=== PATIENT | female | born 1995 | race Caucasian/White ===

== ENCOUNTER 2018-04-30 11:42 | Emergency (ER) | END 2018-04-30 13:18 | disposition home or self-care (01) ==

== ENCOUNTER 2018-09-22 23:26 | Emergency (ER) | payer MEDICAID ==
[~2018-09-22] VITALS: Wt 59.3 kg
[~2018-09-22 23:26] MED LIST: MECL12.574 PO; ONDA4TAB14 PO; PRENAT PO
[2018-09-22 23:28] VITALS: BP 126/69; PULSE 81; RESP 19
--- NOTE | 2018-09-22 23:37 | ERD ---
ER Documentation Chief Complaint Chief Complaint bib self, cc: lac on upper left eye lid HPI This is a 22-year-old female who presents emergency department with complaints of left upper eyelid laceration that happened 40 minutes prior to arrival here in the emergency department. Stated that [id number] boy hit her left upper eyelid using a toy truck. LMP: 2 weeks ago. A0. Denies headache, head injury, loss of consciousness, dizziness, neck pain, neck stiffness, throat pain, difficulty swallowing, difficulty breathing lying flat, shoulder pain, chest pain, back pain, abdominal pain, nausea, vomiting, constipation, diarrhea, urinary symptoms, or possibility being pregn ant, loss of bowel and bladder control, difficulty walking due to pain, numbness or tingling sensation, calf pain, recent travel, recent major surgery in the last 3 weeks, calf pain, recent long travel, recent exposure to any illness, recent antibiotic use in the last 3 months, fever, chills, seizures. Past medical history: Denies. Surgical history: Denies. Social: Denies smoking, use of alcoholic beverages, use of illegal drugs. ROS All systems reviewed and are negative except as per history of present illness. Medications Home Meds Active Scripts Acetaminophen* (Tylophen*) 500 Mg Capsule, 1 CAP PO Q6H PRN for PAIN AND OR ELEVATED TEMP, #20 CAP Prov:VICTOR HUGO MOSESAR F 09/23/18 Ibuprofen* (Motrin*) 600 Mg Tab, 600 MG PO Q6H PRN for PAIN AND OR ELEVATED TEMP, #30 TAB Prov:JULIANAILABANVICTOR HUGOAR F 09/23/18 Meclizine Hcl* (Antivert*) 12.5 Mg Tab, 12.5 MG PO Q6H PRN for DIZZINESS, #20 TAB Prov:JASMINE NAGEL PA-C 04/30/18 Ondansetron (Ondansetron Odt) 4 Mg Tab.rapdis, 4 MG PO Q6H PRN for NAUSEA AND/OR VOMITING, #15 TAB Prov:JASMINE NAGEL PA-C 04/30/18 Reported Medications Multivit/Min/Fol Ac/Iron/Pren* ( S*) 1 Tab Tab, 1 TAB PO DAILY, TAB 06/11/16 Allergies Allergies: Coded Allergies: No Known Allergy (Unverified , 08/28/16) PMhx/Soc History of Surgery: No Anesthesia Reaction: No Hx Neurological Disorder: No Hx Respiratory Disorders: No Hx Cardiac Disorders: No Hx Psychiatric Problems: No Hx Miscellaneous Medical Probl: No Hx Alcohol Use: No Hx Substance Use: No Hx Tobacco Use: No Physical Exam Vitals Vital Signs Date Temp Pulse Resp B/P (MAP) Pulse Ox O2 O2 Flow FiO2 Time Delivery Rate 09/22/18 98.1 81 19 126/69 100 23:28 (88) Physical Exam Const: No acute distress Head: Atraumatic Eyes: Normal Conjunctiva. Left upper eyelid: Laceration measuring approximately 1.5 cm in length. ENT: Normal External Ears, Nose and Mouth. Neck: Full range of motion. No meningismus. Resp: Clear to auscultation bilaterally Cardio: Regular rate and rhythm, no murmurs Abd: Soft, non tender, non distended. Normal bowel sounds Skin: No petechiae or rashes Back: No midline or flank tenderness Ext: No cyanosis, or edema Neur: Awake and alert Psych: Normal Mood and Affect Results 24 hrs Current Medications Medications Dose Sig/Jhoan Start Time Status Last (Trade) Ordered Route PRN Stop Time Admin Dose Reason Admin Diphtheria/ 0.5 ml ONCE ONCE 09/23/18 DC 09/22/18 Tetanus/Acell IM* 00:00 23:49 Pertussis 09/23/18 (Adacel) 00:01 Lidocaine 20 ml ONCE ONCE 09/23/18 DC (Xylocaine SC 00:00 1% (Mdv) 20 09/23/18 ml) 00:01 Tetracaine 1 drop ONCE ONCE 09/23/18 DC HCl BOTH EYES 00:00 (Tetracaine 09/23/18 0.5% 00:01 Steri-Unit Brenda) Fluorescein 1 strip ONCE ONCE 09/23/18 DC Sodium BOTH EYES 00:00 ([id number] 09/23/18 p) 00:01 Ibuprofen 600 mg ONCE ONCE 09/23/18 DC 09/22/18 (Motrin) PO 00:00 23:48 09/23/18 00:01 Bacitracin 1 applic ONCE ONCE 09/23/18 DC (Bacitracin TOP 01:30 Oint (Ud)) 09/23/18 01:31 Procedures/MDM Diagnostic tests: ED visual acuity: Left eye: 20/30. Right eye: 20/25. Bilateral eyes: 20/20. Eye examination under Baum lamp: I explained to the mother that I am not a plastic surgeon and that there would be a scarring after the laceration repair. Procedure: Laceration repair to left upper eyelid. Sterile technique observed. Verbal consent was done. Betadine prep. Lidocaine 1% 1 cc subcu. Ethilon 6-0 x5 simple interrupted sutures. 1.5 cm after closure. Treatment: Adacel IM. Re-evaluation: There is no visual field loss. No active bleeding. Has good eye movement. Differential diagnosis I have low suspicion for retained foreign body, globe rupture. Final diagnosis: Prescription: Motrin. Tylenol. Follow-up with PCP in the next 24-48 hours. Come back in 2 days for wound check. Come back in 7 days for suture removal. Come back here in the emergency department for any new symptoms or any worsening symptoms. All questions and concerns were answered. Patient and family members verbalized understanding and agreed with plan of care. Hemodynamically stable on discharge. Departure Diagnosis: Primary Impression: Eyelid laceration Additional Impression: Facial laceration Condition: Stable Additional Instructions: Follow-up with PCP in the next 24-48 hours. Come back in 2 days for wound check. Come back in 7 days for suture removal. Come back here in the emergency department for any new symptoms or any worsening symptoms. PADMAJA MOSES Sep 22, 2018 23:37
[2018-09-23] MEDS ORDERED: TETRACAINE 0.5% 4 ML OPH BOTH EYES ONE
[2018-09-23] MEDS ORDERED: LIDOCAINE 1% (MDV) 20 ML INJ SC ONE
[2018-09-23] MEDS ORDERED: DIPHTH/TET/ACEL PERTUSS (ADULT) 0.5 ML VIAL IM* ONE
[2018-09-23] MEDS ORDERED: IBUPROFEN 600 MG TAB PO ONE
[2018-09-23] MEDS ORDERED: FLUORESCEIN STRIP BOTH EYES ONE
[2018-09-23] MEDS ORDERED: ACET500C5 PO (01:27)
[2018-09-23] MEDS ORDERED: IBUP-1542 PO (01:27)
[2018-09-23] MEDS ORDERED: BACITRACIN 0.9 GM OINT TOP ONE (01:30)
== END 2018-09-23 01:32 | disposition home or self-care (01) ==
LOC: FTE 23:26
DX: S01.112A Laceration without foreign body of left eyelid and periocular area, initial encounter (principal); S01.81XA Laceration without foreign body of other part of head, initial encounter; W22.8XXA Striking against or struck by other objects, initial encounter; Y92.9 Unspecified place or not applicable; Z23 Encounter for immunization
CPT/HCPCS: 12011; 90471; 90715; Z7502; Z7610